=== PATIENT | female | born 1970 | race Caucasian/White ===

== ENCOUNTER → 2016-08-04 | Outpatient (CLI) | payer OTHER ==
--- NOTE | 2016-08-04 11:36 | DX ---
Chest, Two Views at 1102 hours History: R07.9. 46 YO FEMALE WITH LEFT SIDE CHEST PAIN, PALPITATIONS AND SOB. Comparison: March 2016 Findings: Cardiac silhouette is within normal range. No pneumonia, congestive heart failure, pleural effusion, or pneumothorax. Impression: No acute pulmonary disease.
== END ==
LOC: BMCIMAGING 11:05
PROVIDERS: ATTEND Physician Assistant
DX: R07.9 Chest pain, unspecified (principal); R00.2 Palpitations; R06.02 Shortness of breath

== ENCOUNTER → 2016-12-31 | Outpatient (CLI) | payer OTHER | LOC: FIMAGING 15:38 | PROVIDERS: ATTEND Family Medicine | DX: Z12.31 Encounter for screening mammogram for malignant neoplasm of breast (principal) | CPT/HCPCS: G0202 ==

== ENCOUNTER → 2017-01-29 | Outpatient (CLI) | payer OTHER | LOC: BMCIMAGING 12:24 | PROVIDERS: ATTEND Registered Nurse General Practice | DX: Q65.89 Other specified congenital deformities of hip (principal); M24.852 Other specific joint derangements of left hip, not elsewhere classified; M51.36 Other intervertebral disc degeneration, lumbar region ==

== ENCOUNTER → 2017-02-06 | Outpatient (CLI) | payer OTHER | LOC: FIMAGING 08:59 | PROVIDERS: ATTEND Family Medicine | DX: N83.292 Other ovarian cyst, left side (principal); N88.8 Other specified noninflammatory disorders of cervix uteri; R93.8 Abnormal findings on diagnostic imaging of other specified body structures ==

== ENCOUNTER 2017-05-16 11:32 | Emergency (ER) | payer OTHER ==
--- NOTE | 2017-05-16 12:07 | EDPHY ---
HPI/HX/ROS/PE/MDM Narrative: CHIEF COMPLAINT: Cough, chest pain HPI: The patient is a 47 y/o female complaining of a persistent cough for the last two months and left-sided chest pain onset this morning. She initially developed what she describes as a "head cold" that then became a "dry stuffy cough." She saw her PCP and was diagnosed with probable postnasal drip related to allergies. She has been using Flonase and Neti pot without improvement in her cough. She went back to her PCP on Thursday, 3 days ago, and was prescribed a Z-pack and albuterol inhaler, though she did not have a chest x- ray performed at that visit. She did not use the inhaler because she was concerned it would raise her blood pressure. This morning she noticed pain on the left side of her chest and is anxious about possible lung cancer due to her history of smoking. She has a history of fluid-filled breast cysts, but says this pain feels different. She is unable to replicate it with palpation, movement, or breathing. She has no known cardiac disease or blood clot history. She denies leg swelling, though notes some mild transient pain along the back of her left knee this morning. REVIEW OF SYSTEMS: Aside from elements discussed in the HPI, a comprehensive 10-point review of systems was reviewed and is negative. PMH: Fluid-filled breast cysts SOCIAL HISTORY: "on-and-off smoker" currently using nicotine patches. Lives in [place]. Employed. PHYSICAL EXAM: General:Patient is alert, in no acute distress. ENT:Eyes are normal to inspection. ENT inspection normal. Neck: Normal inspection. Full range of motion. Respiratory:No respiratory distress. Breath sounds normal bilaterally. Cardiovascular: Tachycardic regular rate and rhythm. Strong peripheral pulses. Normal cap refill. Abdomen:The abdomen is nontender to palpation. There are no peritoneal signs. Back: Normal to inspection. No tenderness to palpation. Skin: Normal color. No rash. Warm and dry. Extremities: Normal appearance. Full range of motion. Neuro: Oriented x3. Normal motor function. Normal sensory function. ED Course: This is a 47 y/o female who presents with a 2-month history of nonproductive cough that has failed to improve with OTC remedies and left-sided chest pain that began this morning. She is somewhat anxious, but her exam is otherwise unremarkable. Plan for IV, labs, EKG, chest x-ray. 1L IV NS administered. The 12 lead EKG was interpreted by myself. See hard copy and/or "tracemaster" electronic copy for interpretation. Chest x-ray is negative. 1315: Reevaluated patient. She remains tachycardic around 120. Her d-dimer is negative and she had a normal TSH a couple weeks ago. I've recommended a chest CTA to rule out PE, which she agrees to. 1425: Chest CTA is negative for PE. Reassessed patient and discussed findings. She understands that the etiology of tachycardia and chest pain is unknown. She will follow-up with her PCP for further workup. She will be discharged home in good condition with standard cough and chest pain care and follow up instructions. Return precautions discussed. She is comfortable with this plan. MDM: I see no indication of PNA, TAD, PE, ACS, VT. - Data Points Imaging Results: Imaging Impressions Chest X-Ray 05/16/17 11:57 Impression: No pneumonia. Minimal airways disease. Chest/Thorax CTA 05/16/17 13:23 Impression: 1. No evidence of thrombopulmonary embolic disease. 2. Clear lungs. No acute process. Findings discussed with Emergency Department physician, Gold Tijerina, on May 16, 2017 at 1416 hours. Imaging: I viewed and interpreted images myself Laboratory Results: Laboratory Results 05/16/17 12:30 05/16/17 12:30 05/16/17 05/16/17 05/16/17 12:30 12:30 12:30 WBC 12.57 10^3/uL H 10^3/uL (3.80-9.50) RBC 4.30 10^6/uL 10^6/uL (4.18-5.33) Hgb 13.9 g/dL g/dL (12.6-16.3) Hct 40.6 % % (38.0-47.0) MCV 94.4 fL fL (81.5-99.8) MCH 32.3 pg pg (27.9-34.1) MCHC 34.2 g/dL g/dL (32.4-36.7) RDW 12.7 % % (11.5-15.2) Plt Count 308 10^3/uL 10^3/uL (150-400) MPV 10.0 fL fL (8.7-11.7) Neut % (Auto) 82.9 % H % (39.3-74.2) Lymph % (Auto) 10.5 % L % (15.0-45.0) [place] % (Auto) 5.0 % % (4.5-13.0) Eos % (Auto) 0.7 % % (0.6-7.6) Baso % (Auto) 0.6 % % (0.3-1.7) Nucleat RBC Rel Count 0.0 % % (0.0-0.2) Absolute Neuts (auto) 10.42 10^3/uL H 10^3/uL (1.70-6.50) Absolute Lymphs (auto) 1.32 10^3/uL 10^3/uL (1.00-3.00) Absolute Monos (auto) 0.63 10^3/uL 10^3/uL (0.30-0.80) Absolute Eos (auto) 0.09 10^3/uL 10^3/uL (0.03-0.40) Absolute Basos (auto) 0.07 10^3/uL 10^3/uL (0.02-0.10) Absolute Nucleated RBC 0.00 10^3/uL 10^3/uL (0-0.01) Immature Gran % 0.3 % % (0.0-1.1) Immature Gran # 0.04 10^3/uL 10^3/uL (0.00-0.10) D-Dimer 0.32 ug/mLFEU ug/mLFEU (0.00-0.50) Sodium 140 mEq/L mEq/L (134-144) Potassium 4.0 mEq/L mEq/L (3.5-5.2) Chloride 103 mEq/L mEq/L (97-110) Carbon Dioxide 25 mEq/l mEq/l (22-31) Anion Gap 12 mEq/L mEq/L (8-16) BUN 9 mg/dL mg/dL (7-23) Creatinine 0.7 mg/dL mg/dL (0.6-1.0) Estimated GFR > 60 Glucose 116 mg/dL H mg/dL (70-100) Calcium 9.9 mg/dL mg/dL (8.5-10.4) Troponin I < 0.012 ng/mL ng/mL (0.000-0.034) Medications Given: Discontinued Medications Sodium Chloride (Ns) 1,000 mls @ 0 mls/hr IV EDNOW ONE; Wide Open PRN Reason: Protocol Stop: 05/16/17 12:11 Last Admin: 05/16/17 12:50 Dose: 1,000 mls Lorazepam (Ativan Injection) 0.5 mg IVP EDNOW ONE Stop: 05/16/17 13:23 Last Admin: 05/16/17 13:30 Dose: 0.5 mg General Time Seen by Provider: 05/16/17 11:56 Initial Vital Signs: Initial Vital Signs Temperature (C) 36.8 C 05/16/17 11:34 Heart Rate 133 H 05/16/17 11:34 Respiratory Rate 20 05/16/17 11:34 Blood Pressure 146/108 H 05/16/17 11:34 O2 Sat (%) 96 05/16/17 11:34 O2 Delivery Mode Room Air Allergies/Adverse Reactions: No Known Allergies Allergy (Verified 05/16/17 11:33) Home Medications: Medication Instructions Recorded Nicotine 08/20/15 Departure - Departure Disposition: Home, Routine, Self-Care Clinical Impression: Cough, Chest pain Condition: Good Instructions: Chest Pain (ED), Acute Cough (ED) Additional Instructions: 1. Take 600mg ibuprofen every 6-8 hours for the next few days as needed for pain. 2. Follow up with your primary care provider for unimproved symptoms over the next few days. 3. Return to the ED for severe pain, shortness of breath, or other worsening of condition. Referrals: Katherine Looney MD [Medical Doctor] - As per Instructions Report Scribed for: Gold Tijerina Report Scribed by: Radha Goyal Date of Report: 05/16/17 Time of Report: 12:14 Physician Review and Approval Statement: Portions of this note were transcribed by an ED scribe. I personally performed the history, physical exam, and medical decision making; and confirm the accuracy of the information in the transcribed note.
[2017-05-16] MEDS ORDERED: NS 1,000 ML IV ONE (12:10)
--- NOTE | 2017-05-16 12:23 | CPEKG ---
Heart Rate: 110 RR Interval: 545 P-R Interval: 120 QRSD Interval: 78 QT Interval: 324 QTC Interval: 439 P [place]: 73 QRS [place]: 68 T Wave [place]: 55 EKG Severity - OTHERWISE NORMAL ECG - EKG Impression: SINUS TACHYCARDIA Electronically Signed By: Issac Rausch 17-May-2017 08:10:02
[2017-05-16 12:44] LABS: % IMMATURE GRANULYOCYTES 0.3 % (0.0-1.1); ABSOLUTE IMMATURE GRANULOCYTES 0.04 10^3/uL (0.00-0.10); ADD DIFF? NO; ADD MORPH? NO; ADD SCAN? NO; ATYPICAL LYMPHOCYTE FLAG 0 (0-99); FRAGMENT RBC FLAG 0 (0-99); HEMATOCRIT 40.6 % (38.0-47.0); HEMOGLOBIN 13.9 g/dL (12.6-16.3); LEFT SHIFT FLG 0 (0-99); LIPEMIA HEMOLYSIS FLAG 90 (0-99); MEAN CELL HEMOGLOBIN 32.3 pg (27.9-34.1); MEAN CELL HEMOGLOBIN CONCENTR. 34.2 g/dL (32.4-36.7); MEAN CELL VOLUME 94.4 fL (81.5-99.8); PLATELET CLUMPS FLAG 0 (0-99); PLATELET COUNT 308 10^3/uL (150-400); RED CELL DISTRIBUTION WIDTH 12.7 % (11.5-15.2)
[2017-05-16 12:45] LABS: ANION GAP 12 mEq/L (8-16); CALCIUM 9.9 mg/dL (8.5-10.4); CARBON DIOXIDE 25 mEq/l (22-31); CHLORIDE 103 mEq/L (97-110); CREATININE 0.7 mg/dL (0.6-1.0); GLOMERULAR FILTRATION RATE > 60; GLUCOSE 116 mg/dL (70-100); SODIUM 140 mEq/L (134-144)
[2017-05-16 12:57] LABS: TROPONIN I < 0.012 ng/mL (0.000-0.034)
[2017-05-16 13:00] VITALS: RESP 18
[2017-05-16] MEDS ORDERED: LORazepam 2 MG/ML INJ IVP ONE (13:22)
[2017-05-16 13:25] VITALS: TEMP 98.8
[2017-05-16] MEDS ORDERED: IOPAMIDOL (ISOVUE 370) 100 ML BTL IV ONE (13:33)
[2017-05-16 14:49] VITALS: BP 137/92; PULSE 95; O2SAT 96
== END 2017-05-16 14:50 | disposition home or self-care (01) ==
DX: R05 Cough (principal); R07.9 Chest pain, unspecified; E86.9 Volume depletion, unspecified
CPT/HCPCS: 96374; J2060; Q9967

== ENCOUNTER 2017-05-28 09:25 | Observation (INO) | payer OTHER ==
--- NOTE | 2017-05-28 09:38 | CPEKG ---
Heart Rate: 113 RR Interval: 531 P-R Interval: 124 QRSD Interval: 78 QT Interval: 316 QTC Interval: 434 P [place]: 78 QRS [place]: 78 T Wave [place]: 57 EKG Severity - BORDERLINE ECG - EKG Impression: FAST SINUS ARRHYTHMIA, RATE 76-129 EKG Impression: BORDERLINE R WAVE PROGRESSION, ANTERIOR LEADS Electronically Signed By: Sathish Scherer 29-May-2017 20:39:37
[2017-05-28] MEDS ORDERED: ASPIRIN 81 MG CHEWABLE TAB PO ONE (10:04)
[2017-05-28] MEDS ORDERED: KETOROLAC 30 MG/1 ML SDV IVP ONE (10:04)
[2017-05-28] MEDS ORDERED: NS 500 ML IV ONE (10:04)
--- NOTE | 2017-05-28 10:04 | EDPHY ---
H & P Time Seen by Provider: 05/28/17 09:46 HPI/ROS: CHIEF COMPLAINT: Chest pain, cough HISTORY OF PRESENT ILLNESS: The patient is a 47-year-old female who presents emergency department with left-sided chest pain. The patient has had a recent history of a persistent cough. Her cough had been present for 2 months. She took an entire course of azithromycin without relief. She was seen in the emergency department on 05/16/2017. At that time she had a chest x-ray which was negative and she was discharged home. She followed up with the primary care physician, Dr. Manrique, on Thursday. She was prescribed Zantac and has been taking that since Thursday. She woke at 4:00 a.m. this morning with significant "hacking cough. "She went back to sleep. Upon waking at 7:00 a.m. she developed left-sided chest discomfort. It is tender to the touch. It radiates to her left armpit. She describes it as moderate. It is not worse with movement. She denies new shortness of breath. No hemoptysis. No fevers or chills. No leg pain or swelling. No recent travel. REVIEW OF SYSTEMS: My complete review of systems is negative except as mentioned in the HPI. Past Medical/Surgical History: Includes breast cyst Past surgical history: Breast cyst removal Social history: The patient smokes intermittently. Smoking Status: Light smoker Physical Exam: Vitals noted GENERAL: Well-appearing, in no acute distress, alert. HEENT: Eyes normal to inspection, normal pharynx, no signs of dehydration. NECK: No thyromegaly, no lymphadenopathy, supple. RESPIRATORY: Clear to auscultation bilaterally, no rales, rhonchi or wheezing. Chest x-ray: Patient has mild tenderness palpation over left anterior chest wall. No rash or swelling. CVS: Regular rate and rhythm, no rubs, murmurs, or gallops. ABDOMEN: Soft, nontender, nondistended, no organomegaly. BACK: Normal to inspection, no CVA tenderness. SKIN: Normal color, no rash, warm, dry. No pallor. EXTREMITIES: No pedal edema, no calf tenderness, no Homans sign or cords, no joint swelling. NEURO/PSYCH: Alert and oriented x3, normal mood and affect, normal motor sensory exam. Constitutional: Initial Vital Signs Temperature (C) 36.8 C 05/28/17 09:27 Heart Rate 131 H 05/28/17 09:27 Respiratory Rate 22 H 05/28/17 09:27 Blood Pressure 151/105 H 05/28/17 09:27 O2 Sat (%) 97 05/28/17 09:27 O2 Delivery Mode Room Air Allergies/Adverse Reactions: No Known Allergies Allergy (Verified 05/28/17 09:26) Home Medications: Medication Instructions Recorded Nicotine 08/20/15 Zantac 05/28/17 Medical Decision Making - Diagnostics Imaging Results: Imaging Impressions Chest X-Ray 05/28/17 10:04 Impression: Chronic or recurrent airways disease. No left chest wall abnormality identified. Chest/Thorax CTA 05/28/17 10:46 Impression: 1. No pulmonary embolic disease. 2. Shotty noncalcified hilar adenopathy, slightly progressed x2 weeks. 3. Multiple liver lesions, presumably cysts. Considering the elevated white count, perhaps this might be confirmed by ultrasound? Results called and discussed with ELLIS VANN, at 05/28/2017 11:46 General information for patients regarding this examination can be found at [email or web address]. If you have questions or comments about this report, please contact me at [phone] (hospital) or [phone] (cell). ED Course/Re-evaluation: In the emergency department I discussed possible etiologies with the patient. I answered all her questions. IV was placed. EKG, chest x-ray and laboratory studies were ordered. The patient was given Toradol 30 mg IV. EKG shows sinus rhythm, tachycardia, normal axis, normal intervals. There are no ST or T-wave abnormalities. Patient was not have an elevated white count 52914. There is a left shift. I discussed the results with the patient. On recheck she still had mild chest discomfort. I recommended CT angiogram of the chest to further evaluate for underlying mass , malignancy or infiltrate. The patient consented. CT angiogram: Please refer the depart. The patient has lymphadenopathy which is increased from her previous scan. There is no infiltrate. Patient does have a few cystic type lesions in her liver. LFTs were added. I discussed the results with the patient. I answered all her questions. I discussed case with the hospitalist service. They will admit for further evaluation. Differential Diagnosis: My differential includes but is not limited to ACS, acute ND, dissection, aneurysm bronchitis, pneumonia, pneumothorax, hemothorax, empyema, pleurisy, costochondritis, muscle strain - Data Points Laboratory Results: Laboratory Results 05/28/17 09:48 05/28/17 09:48 05/28/17 05/28/17 05/28/17 09:48 09:48 09:48 WBC 21.79 10^3/uL H 10^3/uL (3.80-9.50) RBC 4.42 10^6/uL 10^6/uL (4.18-5.33) Hgb 14.2 g/dL g/dL (12.6-16.3) Hct 42.2 % % (38.0-47.0) MCV 95.5 fL fL (81.5-99.8) MCH 32.1 pg pg (27.9-34.1) MCHC 33.6 g/dL g/dL (32.4-36.7) RDW 12.5 % % (11.5-15.2) Plt Count 358 10^3/uL 10^3/uL (150-400) MPV 10.3 fL fL (8.7-11.7) Neut % (Auto) 89.9 % H % (39.3-74.2) Lymph % (Auto) 4.4 % L % (15.0-45.0) [place] % (Auto) 4.3 % L % (4.5-13.0) Eos % (Auto) 0.4 % L % (0.6-7.6) Baso % (Auto) 0.4 % % (0.3-1.7) Nucleat RBC Rel Count 0.0 % % (0.0-0.2) Absolute Neuts (auto) 19.59 10^3/uL H 10^3/uL (1.70-6.50) Absolute Lymphs (auto) 0.96 10^3/uL L 10^3/uL (1.00-3.00) Absolute Monos (auto) 0.93 10^3/uL H 10^3/uL (0.30-0.80) Absolute Eos (auto) 0.09 10^3/uL 10^3/uL (0.03-0.40) Absolute Basos (auto) 0.09 10^3/uL 10^3/uL (0.02-0.10) Absolute Nucleated RBC 0.00 10^3/uL 10^3/uL (0-0.01) Immature Gran % 0.6 % % (0.0-1.1) Immature Gran # 0.13 10^3/uL H 10^3/uL (0.00-0.10) D-Dimer < 0.27 ug/mLFEU ug/mLFEU (0.00-0.50) Sodium 140 mEq/L mEq/L (134-144) Potassium 4.2 mEq/L mEq/L (3.5-5.2) Chloride 103 mEq/L mEq/L (97-110) Carbon Dioxide 24 mEq/l mEq/l (22-31) Anion Gap 13 mEq/L mEq/L (8-16) BUN 11 mg/dL mg/dL (7-23) Creatinine 0.7 mg/dL mg/dL (0.6-1.0) Estimated GFR > 60 Glucose 108 mg/dL H mg/dL (70-100) Calcium 10.0 mg/dL mg/dL (8.5-10.4) Troponin I < 0.012 ng/mL ng/mL (0.000-0.034) Medications Given: Discontinued Medications Aspirin (Aspirin) 324 mg PO EDNOW ONE Stop: 05/28/17 10:05 Last Admin: 05/28/17 10:25 Dose: 324 mg Sodium Chloride (Ns) 500 mls @ 1,000 mls/hr IV EDNOW ONE PRN Reason: Protocol Stop: 05/28/17 10:33 Last Admin: 05/28/17 10:26 Dose: 500 mls Ketorolac Tromethamine (Toradol) 30 mg IVP EDNOW ONE Stop: 05/28/17 10:05 Last Admin: 05/28/17 10:26 Dose: 30 mg Departure - Departure Disposition: [facility] Clinical Impression: Leukocytosis, Liver cyst Chest pain Qualifiers: Chest pain type: other chest pain Qualified Code(s): R07.89 - Other chest pain Condition: Good Instructions: Chest Pain (ED) Referrals: Clotilde Manrique MD [Primary Care Provider] - As per Instructions
[2017-05-28 10:13] LABS: % IMMATURE GRANULYOCYTES 0.6 % (0.0-1.1); ABSOLUTE IMMATURE GRANULOCYTES 0.13 10^3/uL (0.00-0.10); ADD DIFF? NO; ADD MORPH? NO; ADD SCAN? NO; ATYPICAL LYMPHOCYTE FLAG 0 (0-99); FRAGMENT RBC FLAG 0 (0-99); HEMATOCRIT 42.2 % (38.0-47.0); HEMOGLOBIN 14.2 g/dL (12.6-16.3); LEFT SHIFT FLG 0 (0-99); LIPEMIA HEMOLYSIS FLAG 80 (0-99); MEAN CELL HEMOGLOBIN 32.1 pg (27.9-34.1); MEAN CELL HEMOGLOBIN CONCENTR. 33.6 g/dL (32.4-36.7); MEAN CELL VOLUME 95.5 fL (81.5-99.8); MEAN PLATELET VOLUME 10.3 fL (8.7-11.7); PLATELET CLUMPS FLAG 30 (0-99); PLATELET COUNT 358 10^3/uL (150-400); RED BLOOD CELL COUNT 4.42 10^6/uL (4.18-5.33); RED CELL DISTRIBUTION WIDTH 12.5 % (11.5-15.2)
[2017-05-28 10:20] LABS: ANION GAP 13 mEq/L (8-16); CARBON DIOXIDE 24 mEq/l (22-31); CHLORIDE 103 mEq/L (97-110); CREATININE 0.7 mg/dL (0.6-1.0); GLOMERULAR FILTRATION RATE > 60; GLUCOSE 108 mg/dL (70-100); POTASSIUM 4.2 mEq/L (3.5-5.2); SODIUM 140 mEq/L (134-144)
[2017-05-28 10:31] LABS: TROPONIN I < 0.012 ng/mL (0.000-0.034)
[2017-05-28] MEDS ORDERED: IOPAMIDOL (ISOVUE 370) 100 ML BTL IV ONE (10:49)
[2017-05-28] MEDS ORDERED: HYDROmorphONE/DILAUDID 2 MG TAB PO PRN (13:12)
[2017-05-28] MEDS ORDERED: HYDROmorphONE/DILAUDID 1 MG/ML INJ IVP PRN (13:12)
[2017-05-28] MEDS ORDERED: ONDANSETRON 4 MG/2 ML VIAL IVP PRN (13:12)
[2017-05-28] MEDS ORDERED: NICOTINE POLACRILEX 2 MG GUM B PRN (13:12)
[2017-05-28] MEDS ORDERED: ALBUTEROL 60 PUFFS/8 GM MDI IH PRN (13:12)
[2017-05-28] MEDS ORDERED: NICOTINE 14 MG/24 HR PATCH TD PRN (13:12)
[2017-05-28] MEDS ORDERED: ONDANSETRON DISINTEGRATING 4 MG TAB PO PRN (13:12)
[2017-05-28] MEDS ORDERED: ACETAMINOPHEN 325 MG TAB PO PRN (13:12)
[2017-05-28] MEDS ORDERED: NS 1,000 ML IV SCH (13:15)
[2017-05-28] MEDS ORDERED: ALBUTEROL 200 PUFFS/18 GM MDI IH PRN (14:59)
[2017-05-28] MEDS ORDERED: HYDROmorphone HCL/NS/PF 0.4 MG/2 ML SYR IVP PRN (14:59)
[2017-05-28] MEDS ORDERED: IBUPROFEN 200 MG TAB PO PRN (15:52)
[2017-05-28] MEDS ORDERED: guaiFENesin/CODEINE PHOS 10 ML UDCUP PO PRN (16:18)
[2017-05-28] MEDS ORDERED: BENZONATATE 100 MG CAP PO PRN (16:18)
--- NOTE | 2017-05-28 16:22 | PDGENHP ---
History and Physical - Chief Complaint Acute cough - History of Present Illness Primary care provider: Dr. Manrique History of present illness: 39-year-old female presenting with acute cough characterized as nonproductive with associated chest pain characterized as sharp , located in the left chest, with onset of symptoms at 7:00 a.m. on the day of presentation, and duration intermittent thereafter. The patient reports that the pain is exacerbated by coughing, and radiates into the left axilla. The cough seems to be exacerbated by deep inspiration and is worse in the morning. The onset of the cough was 2 months prior, and was precipitated by what sounds like a URI. For the URI the patient had initially taken Rhinocort, Neti pot, humidifier, and then the cough began. She has subsequently seen her primary care provider twice, and was once prescribed a Z-Paramjit, without any relief. She was then prescribed Zantac, without any relief. She was seen in our emergency department on 05/16/2017, and with no abnormal findings, was triaged factor primary care provider. History Information - Allergies/Home Medication List Allergies/Adverse Reactions: No Known Allergies Allergy (Verified 05/28/17 09:26) Home Medications: Ibuprofen [Motrin (*)] 200 - 400 mg PO Q4H PRN 05/28/17 [Last Taken Unknown] Ranitidine HCl [Zantac] 150 mg PO BID 05/28/17 [Last Taken 05/28/17 07:00] I have personally reviewed and updated: family history, medical history, social history, surgical history - Past Medical History Additional medical history: Breast cysts. Temporal bone/sphenoid bone fracture in 2010 - Surgical History Additional surgical history: Recent breast cyst aspiration bilaterally - Family History Additional family history: No family history of pulmonary issues or reactive airway disease - Social History Smoking Status: Light smoker Alcohol Use: Occasionally Drug Use: None Additional social history: Independent in ADLs Review of Systems Review of Systems: ROS: 10pt was reviewed & negative except for what was stated in HPI & below Cardiac: Reports: chest pain Respiratory: Reports: cough Physical Exam Physical Exam: Temp Pulse Resp BP Pulse Ox 36.7 C 85 16 124/84 H 95 05/28/17 15:13 05/28/17 15:13 05/28/17 15:13 05/28/17 15:13 05/28/17 15:13 Constitutional: no apparent distress, appears nourished, not in pain Eyes: PERRL, anicteric sclera, EOMI Ears, Nose, Mouth, Throat: moist mucous membranes, hearing normal, ears appear normal, no oral mucosal ulcers Cardiovascular: regular rate and rhythym, no murmur, rub, or gallop, No edema Respiratory: reduced air movement (On expiration bilaterally), No expiratory wheeze, No inspiratory crackles, No bronchial breath sounds, No respiratory distress Gastrointestinal: normoactive bowel sounds, soft, non-tender abdomen, no palpable masses, No distension Skin: other (No rash or vesicular lesions over the left chest or left back) Musculoskeletal: other (Mild tenderness to palpation over the left intercostal muscles, full range of motion of left shoulder without pain) Neurologic: AAOx3, sensation intact bilaterally, No facial droop Psychiatric: interacting appropriately, not anxious, not encephalopathic, thought process linear Lab Data & Imaging Review 05/28/17 09:48 05/28/17 09:48 WBC 21.79 10^3/uL (3.80-9.50) H 05/28/17 09:48 RBC 4.42 10^6/uL (4.18-5.33) 05/28/17 09:48 Hgb 14.2 g/dL (12.6-16.3) 05/28/17 09:48 Hct 42.2 % (38.0-47.0) 05/28/17 09:48 MCV 95.5 fL (81.5-99.8) 05/28/17 09:48 MCH 32.1 pg (27.9-34.1) 05/28/17 09:48 MCHC 33.6 g/dL (32.4-36.7) 05/28/17 09:48 RDW 12.5 % (11.5-15.2) 05/28/17 09:48 Plt Count 358 10^3/uL (150-400) 05/28/17 09:48 MPV 10.3 fL (8.7-11.7) 05/28/17 09:48 Neut % (Auto) 89.9 % (39.3-74.2) H 05/28/17 09:48 Lymph % (Auto) 4.4 % (15.0-45.0) L 05/28/17 09:48 [place] % (Auto) 4.3 % (4.5-13.0) L 05/28/17 09:48 Eos % (Auto) 0.4 % (0.6-7.6) L 05/28/17 09:48 Baso % (Auto) 0.4 % (0.3-1.7) 05/28/17 09:48 Nucleat RBC Rel Count 0.0 % (0.0-0.2) 05/28/17 09:48 Absolute Neuts (auto) 19.59 10^3/uL (1.70-6.50) H 05/28/17 09:48 Absolute Lymphs (auto) 0.96 10^3/uL (1.00-3.00) L 05/28/17 09:48 Absolute Monos (auto) 0.93 10^3/uL (0.30-0.80) H 05/28/17 09:48 Absolute Eos (auto) 0.09 10^3/uL (0.03-0.40) 05/28/17 09:48 Absolute Basos (auto) 0.09 10^3/uL (0.02-0.10) 05/28/17 09:48 Absolute Nucleated RBC 0.00 10^3/uL (0-0.01) 05/28/17 09:48 Immature Gran % 0.6 % (0.0-1.1) 05/28/17 09:48 Immature Gran # 0.13 10^3/uL (0.00-0.10) H 05/28/17 09:48 D-Dimer < 0.27 ug/mLFEU (0.00-0.50) 05/28/17 09:48 Sodium 140 mEq/L (134-144) 05/28/17 09:48 Potassium 4.2 mEq/L (3.5-5.2) 05/28/17 09:48 Chloride 103 mEq/L (97-110) 05/28/17 09:48 Carbon Dioxide 24 mEq/l (22-31) 05/28/17 09:48 Anion Gap 13 mEq/L (8-16) 05/28/17 09:48 BUN 11 mg/dL (7-23) 05/28/17 09:48 Creatinine 0.7 mg/dL (0.6-1.0) 05/28/17 09:48 Estimated GFR > 60 05/28/17 09:48 Glucose 108 mg/dL (70-100) H 05/28/17 09:48 Calcium 10.0 mg/dL (8.5-10.4) 05/28/17 09:48 Troponin I < 0.012 ng/mL (0.000-0.034) 05/28/17 09:48 Visualized and Interpreted imaging results: Yes Interpretation: No evidence of pulmonary embolism, no evidence of focal airspace disease, some hilar adenopathy, some cysts in the liver Visualized and Interpreted EKG results: Yes EKG additional interpertation: Sinus arrhythmia with poor R-wave progression in lead V2 through V3 Assessment & Plan Assessment: 47-year-old female presenting with acute chest pain and chronic cough Plan: 1. Chest pain. Acute, new problem this provider, further workup indicated. Suspect this is musculoskeletal in the setting of chronic cough, with reproducible tenderness, temporal association with cough -cycle cardiac enzymes to ensure no evidence of acute coronary syndrome -continue monitor on telemetry overnight -if resolves with treatment of suspected COPD, will not pursue further cardiac workup 2. Suspected chronic bronchitis. Most likely precipitated by viral URI, patient has had persistent cough for 2 months and has yet to trial any steroids or beta agonist therapy, not responsive to antibiotics -provided 5 day burst of prednisone, initiate now -Trial scheduled duo nebs, as needed albuterol inhaler for a teaching -supportive care with guaifenesin/codeine, Tessalon Perles 3. Leukocytosis. Acute, reviewed outside records including 05/16/2017 emergency department report by Dr. Gold Tijerina for presentation of the same, [place] [address] at that time there was most likely secondary to stress response -white blood cell count has continued to rise, is neutrophil predominant count, patient does not have any evidence of infection on chest CT but she does have hilar lymphadenopathy which does raise concerns for malignant versus reactive lymph nodes -discussed with patient, recommend short-term follow-up CT with IV contrast approximately 3 months as well as outpatient pulmonary follow-up -will repeat white blood cell count now given the patient is no longer experiencing pain or acute distress Diet. Regular Prophylaxis. Low risk patient, SCDs Code. Full Disposition. Anticipated discharge 05/29/2017, pending further workup as outlined above. I have discussed patient's presentation with Natalia Roque, hospitalist provider , she has signed out the patient to me for evaluation.
[2017-05-28] MEDS: IPRATROPIUM/ALBUTEROL 3 ML DEYVIAL IH SCH (16:52)
[2017-05-28 17:23] LABS: % IMMATURE GRANULYOCYTES 0.4 % (0.0-1.1); ABSOLUTE IMMATURE GRANULOCYTES 0.04 10^3/uL (0.00-0.10); ADD DIFF? NO; ADD MORPH? NO; ADD SCAN? NO; ATYPICAL LYMPHOCYTE FLAG 20 (0-99); FRAGMENT RBC FLAG 0 (0-99); HEMATOCRIT 37.7 % (38.0-47.0); HEMOGLOBIN 12.2 g/dL (12.6-16.3); LEFT SHIFT FLG 0 (0-99); LIPEMIA HEMOLYSIS FLAG 80 (0-99); MEAN CELL HEMOGLOBIN 31.1 pg (27.9-34.1); MEAN CELL HEMOGLOBIN CONCENTR. 32.4 g/dL (32.4-36.7); MEAN CELL VOLUME 96.2 fL (81.5-99.8); MEAN PLATELET VOLUME 10.2 fL (8.7-11.7); PLATELET CLUMPS FLAG 40 (0-99); PLATELET COUNT 303 10^3/uL (150-400); RED BLOOD CELL COUNT 3.92 10^6/uL (4.18-5.33); RED CELL DISTRIBUTION WIDTH 12.8 % (11.5-15.2)
[2017-05-28] MEDS: predniSONE 20 MG TAB PO SCH (18:15)
[2017-05-28] MEDS: FAMOTIDINE 20 MG TAB PO SCH (20:51)
[2017-05-28] MEDS ORDERED: NON-FORMULARY NEW DRUG (Ranitidine Hcl [Zantac] 150 MG) PO SCH (21:00)
[2017-05-29] MEDS: IPRATROPIUM/ALBUTEROL 3 ML DEYVIAL IH SCH ×3 (00:44→11:43)
[2017-05-29 05:40] LABS: % IMMATURE GRANULYOCYTES 0.4 % (0.0-1.1); ABSOLUTE IMMATURE GRANULOCYTES 0.03 10^3/uL (0.00-0.10); ADD DIFF? NO; ADD MORPH? NO; ADD SCAN? NO; ATYPICAL LYMPHOCYTE FLAG 10 (0-99); FRAGMENT RBC FLAG 0 (0-99); HEMATOCRIT 37.6 % (38.0-47.0); HEMOGLOBIN 12.5 g/dL (12.6-16.3); LEFT SHIFT FLG 0 (0-99); LIPEMIA HEMOLYSIS FLAG 80 (0-99); MEAN CELL HEMOGLOBIN CONCENTR. 33.2 g/dL (32.4-36.7); MEAN CELL VOLUME 96.2 fL (81.5-99.8); MEAN PLATELET VOLUME 10.3 fL (8.7-11.7); PLATELET CLUMPS FLAG 10 (0-99); PLATELET COUNT 283 10^3/uL (150-400); RED BLOOD CELL COUNT 3.91 10^6/uL (4.18-5.33); RED CELL DISTRIBUTION WIDTH 12.8 % (11.5-15.2)
[2017-05-29 05:56] LABS: ALANINE AMINOTRANSFERASE 25 IU/L (9-52); ALBUMIN 3.4 g/dL (3.5-5.0); ALKALINE PHOSPHATASE 73 IU/L (38-126); ANION GAP 10 mEq/L (8-16); ASPARTATE AMINOTRANSFERASE 16 IU/L (14-46); BILIRUBIN,TOTAL 0.2 mg/dL (0.1-1.4); C-REACTIVE PROTEIN 12.5 mg/L (<10.0); CALCIUM 9.6 mg/dL (8.5-10.4); CARBON DIOXIDE 25 mEq/l (22-31); CHLORIDE 108 mEq/L (97-110); CREATININE 0.6 mg/dL (0.6-1.0); GLOMERULAR FILTRATION RATE > 60; GLUCOSE 126 mg/dL (70-100); LACTATE DEHYDROGENASE 322 IU/L (313-618); MAGNESIUM 1.9 mg/dL (1.6-2.3); POTASSIUM 4.4 mEq/L (3.5-5.2); SODIUM 143 mEq/L (134-144); TOTAL PROTEIN 5.9 g/dL (6.3-8.2)
[2017-05-29 07:38] VITALS: BP 103/77; RESP 18; TEMP 98.6
[2017-05-29] MEDS: predniSONE 20 MG TAB PO SCH (08:52)
[2017-05-29] MEDS: FAMOTIDINE 20 MG TAB PO SCH (08:52)
[2017-05-29] MEDS ORDERED: PANTOPRAZOLE SODIUM 40 MG TAB PO SCH (10:45)
[2017-05-29 11:19] LABS: SEDIMENTATION RATE 13 MM/HR (0-20)
[2017-05-29 12:00] VITALS: PULSE 83; O2SAT 94
--- NOTE | 2017-05-29 18:18 | PDDCSUM ---
Discharge Summary Discharge Summary: DISCHARGE SUMMARY FOLLOW-UP ITEMS: Repeat CBC as an outpatient after acute episode resolved Get outpatient pulmonary function tests DATE OF ADMISSION: 05/28/2017 DATE OF DISCHARGE: 05/29/2017 DISCHARGE DIAGNOSES: 1. Acute chest pain, suspected costochondritis 2. Suspected chronic bronchitis 3. Systemic inflammatory response syndrome 4. Benign hepatic cysts CONSULTATIONS: None PROCEDURES / IMAGING: CT with IV contrast demonstrating enlarged hilar lymph nodes Ultrasound liver demonstrating benign hepatic cysts CHIEF COMPLAINT: Acute chest pain SUBJECTIVE: Reduced chest pain, ongoing cough PHYSICAL EXAM ON DISCHARGE: Systolic blood pressure 9100, heart rate 90, satting 96% on room air, afebrile overnight, lungs are clear to auscultation on inspiration, have a slightly shortened expiratory phase which prompts cough, no expiratory wheezes or bronchial breath sounds LABS ON DISCHARGE: ESR normal, CRP 12.5, liver panel unremarkable, creatinine 0.6, glucose 130, hemoglobin 12.5, white blood cell count 7000 HOSPITAL COURSE BY PROBLEM: The patient presented with acute chest pain most likely secondary to costochondritis in the setting of chronic cough from chronic bronchitis. The patient has been experiencing this cough for approximately 2 months, it is most likely precipitated by a viral URI. This most likely resulted in mild hilar lymph node enlargement, as noted on chest CT. The patient was ruled out for pulmonary embolism, ruled out for pneumonia. She presented with systemic inflammatory response syndrome as evidenced by white blood cell count 49110, heart rate of 130, respiratory rate of 24, but no evidence of clear infection. After the patient was symptomatically treated with steroids and duo nebs, her white blood cell count down trended to normal, her heart rate completely normalized, and she was breathing well on room air. The patient will receive a total 5 day burst of steroids as well as an as-needed albuterol inhaler on as needed Tessalon Perles, for suspected bronchitis. Recommend that she follow up with Pulmonary provider and have outpatient pulmonary function test. If the patient does not have underlying pulmonary pathology, we have empirically given her a proton pump inhibitor and recommended that she utilize this for 30 days, as it is certainly possible that she has GERD. We have also provided her with as needed naproxen, to treat her costochondritis I recommend that she follow up with her primary care provider in the short term, and then a pulmonary provider thereafter. DISCHARGE MEDICATIONS: Please see official discharge medication reconciliation sheet in chart , prednisone 40 mg daily for the next 4 days, as needed albuterol inhaler, as needed Tessalon Perles, as needed naproxen, pantoprazole 40 mg daily. DISCHARGE INSTRUCTIONS: Please follow up with primary care provider, then pulmonary thereafter.
--- NOTE | 2017-05-30 13:50 | ASDISCHSUM ---
Discharge Information Plan Status: Medically Cleared to Leave: Discharge Date:05/29/2017 02:15 PM CM D/C Disposition: ADT D/C Disposition:Home, Routine, Self-Care Projected Discharge Date:05/29/2017 02:15 PM Transportation at D/C: Discharge Delay Reason: Follow-Up Date:05/29/2017 02:15 PM Discharge Slot: Final Diagnosis: Placement Information Patient Contact Information Contact Name:ALDO Relationship:Christelle Address: Work Phone: City: [place] [facility] Phone: State/[place] Code: Email: Financial Information [facility] Primary Plan Number:[id number] Secondary Plan Desc: Secondary Plan Number: Assessment Information LACE LACE Acuity / Level of Care Answers: Was the patient admitted to hospital via the emergency department? Yes: Emergency dept visits in Answers: 2 last 6 months Score: 5 Date Signed: 05/28/2017 12:57 PM Electronically Signed By:Maribel Weber RN Intervention Information
== END 2017-05-29 14:15 | disposition home or self-care (01) ==
LOC: F3E 14:57
PROVIDERS: ADMIT Internal Medicine; ATTEND Internal Medicine
DX: R07.9 Chest pain, unspecified (principal); R05 Cough; R00.0 Tachycardia, unspecified; D72.829 Elevated white blood cell count, unspecified; R06.82 Tachypnea, not elsewhere classified; K76.89 Other specified diseases of liver
CPT/HCPCS: 71020; 71275; 76705; 93005; G0378; 96374; J1885; Q9967

== ENCOUNTER → 2018-02-11 | Outpatient (CLI) | payer OTHER | LOC: FIMAGING 11:38 | PROVIDERS: ATTEND Family Medicine | DX: Z12.31 Encounter for screening mammogram for malignant neoplasm of breast (principal) ==

== ENCOUNTER → 2018-05-18 | Outpatient (CLI) | payer OTHER ==
[~2018-05-18] MED LIST: IOPAMIDOL (ISOVUE-300) 100 ML BTL ONE
== END ==
LOC: FIMAGING 15:31
PROVIDERS: ATTEND Family Medicine
DX: R91.8 Other nonspecific abnormal finding of lung field (principal); R59.1 Generalized enlarged lymph nodes; K76.89 Other specified diseases of liver
CPT/HCPCS: Q9967